=== PATIENT | female | born 1950 | race Caucasian/White ===

== ENCOUNTER 2023-01-01 08:26 | Day surgery (SDC) | payer MEDICARE ==
[2023-01-01] MEDS ORDERED: Sodium Chloride 0.9(Preservative Free) 10 ML IJ ONE (08:27)
[2023-01-01] MEDS ORDERED: Depo-Medrol 40 MG/ML IM ONE (08:27)
[2023-01-01] MEDS ORDERED: DIPRIVAN 200 MG/20 ML IV ONE (09:53)
[2023-01-01] MEDS ORDERED: Lactated Ringers 1,000 ML IV ONE (10:12)
--- NOTE | 2023-01-01 12:08 | XRAY ---
Indication: Left L4-S1 transforaminal MIKE. Intraoperative fluoroscopy provided for 48 seconds. 8 digital spot image submitted for interpretation demonstrates posterior needle tips projecting over the expected left L4 and L5 nerve roots. Small amount of contrast injected for needle tip placement. Correlate with intraoperative findings/report.
--- NOTE | 2023-01-01 12:12 | XRAY ---
48 seconds of fluoroscopy was used in surgery for a left L3-L5 transforaminal MIKE.
== END 2023-01-01 10:41 | disposition home or self-care (01) ==
LOC: SDC-PAIN 08:26
PROVIDERS: ATTEND Psychiatry & Neurology Pain Medicine
DX: M54.16 Radiculopathy, lumbar region (principal); Z79.899 Other long term (current) drug therapy
CPT/HCPCS: 64483; 64484; 72100; 77003; J1030; J2704; Q9966